=== PATIENT | male | born 1935 | race Caucasian/White ===

== ENCOUNTER 2017-02-23 05:02 | Emergency (ER) | payer MEDICARE ==
[~2017-02-23] VITALS: Ht 177.8 cm; Wt 76.0 kg
[~2017-02-23 05:02] MED LIST: KEFLEX500 MG PO
[2017-02-23 05:08] VITALS: BP 166/91
== END 2017-02-23 06:00 | disposition left against medical advice (07) ==
LOC: ED 05:02 → LWOBS 06:00
DX: Z91.19 Patient's noncompliance with other medical treatment and regimen (principal)

== ENCOUNTER → 2018-12-04 | Outpatient (REF) | payer MEDICARE ==
[~2018-12-04] MED LIST changes: +ASPIRIN 81 LOW81 MG PO; +AVALIDE 150-12.1 TAB PO; +CLONAZEPAM1 M1 PO; +LIPITOR40 M1 PO; +MECLIZINE12.5 M1 PO; +OMEPRAZOLE20 M2 PO; +TOPROL XL50 MG PO; +TYLENOL325 MG PO
== END | disposition home or self-care (01) ==
LOC: LABSPEC 13:50
PROVIDERS: ATTEND Internal Medicine Gastroenterology
DX: R19.7 Diarrhea, unspecified (principal); K29.70 Gastritis, unspecified, without bleeding; B96.81 Helicobacter pylori [H. pylori] as the cause of diseases classified elsewhere; R19.5 Other fecal abnormalities

== ENCOUNTER → 2018-12-31 | Outpatient (REF) | payer MEDICARE ==
[~2018-12-31] VITALS: Ht 177.8 cm; Wt 76.2 kg
[2018-12-31 11:59] VITALS: BP 155/88
== END | disposition home or self-care (01) ==
LOC: ORM 11:00 → ENDO 11:13 → PO 11:13 → ORM 11:15
PROVIDERS: ATTEND Internal Medicine Gastroenterology
DX: Z01.818 Encounter for other preprocedural examination (principal); R19.7 Diarrhea, unspecified; K21.9 Gastro-esophageal reflux disease without esophagitis; I10 Essential (primary) hypertension; R42 Dizziness and giddiness; H40.9 Unspecified glaucoma; I25.10 Atherosclerotic heart disease of native coronary artery without angina pectoris; Z95.1 Presence of aortocoronary bypass graft; Z90.49 Acquired absence of other specified parts of digestive tract; Z98.890 Other specified postprocedural states; Z97.2 Presence of dental prosthetic device (complete) (partial)

== ENCOUNTER 2019-06-20 00:06 | Emergency (ER) | payer MEDICARE ==
[~2019-06-20] VITALS: Ht 25.4 cm; Wt 74.5 kg
[2019-06-20] MEDS ORDERED: TIZANIDINE2 MG PO (00:21)
[2019-06-20] MEDS ORDERED: DULOXETINE HYDR30 MG PO (00:21)
[2019-06-20 03:30] VITALS: BP 161/84
== END 2019-06-20 03:30 | disposition short-term general hospital (02) ==
LOC: ED 00:06
DX: M48.56XA Collapsed vertebra, not elsewhere classified, lumbar region, initial encounter for fracture (principal); M48.061 Spinal stenosis, lumbar region without neurogenic claudication; I10 Essential (primary) hypertension; I25.10 Atherosclerotic heart disease of native coronary artery without angina pectoris; Z95.1 Presence of aortocoronary bypass graft

== ENCOUNTER 2019-07-21 09:23 | Emergency (ER) | payer MEDICARE ==
[~2019-07-21] VITALS: Ht 177.8 cm; Wt 75.5 kg
[~2019-07-21 09:23] MED LIST changes: +DULOXETINE HYDR30 MG PO; +TIZANIDINE2 MG PO
[2019-07-21] MEDS ORDERED: TRAMADOL HYDROC50 M1 PO (09:40)
[2019-07-21] MEDS ORDERED: HYDROCODONE/ACE1 T12 PO (09:41)
[2019-07-21] MEDS ORDERED: BETIMOL0.5 % OU (09:43)
[2019-07-21] MEDS ORDERED: DORZOLAMIDE HCL2 % OD (09:44)
[2019-07-21] MEDS ORDERED: LOTEMAX0.52 OD (09:45)
[2019-07-21] MEDS ORDERED: BRIMONIDINE TAR0.2 % OD (09:45)
[2019-07-21] MEDS ORDERED: CLONAZEPAM1 M1 PO (09:46)
[2019-07-21] MEDS ORDERED: PERCOCET 5/321 COMBO PO (11:20)
[2019-07-21 11:31] VITALS: BP 154/70
== END 2019-07-21 12:48 | disposition home or self-care (01) ==
LOC: ED 09:23
DX: M48.061 Spinal stenosis, lumbar region without neurogenic claudication (principal); I10 Essential (primary) hypertension; I25.10 Atherosclerotic heart disease of native coronary artery without angina pectoris

== ENCOUNTER 2021-01-05 19:23 | Emergency (ER) | payer MEDICARE ==
[~2021-01-05] VITALS: Ht 177.8 cm; Wt 71.0 kg
[~2021-01-05 19:23] MED LIST changes: +BETIMOL0.5 % OU; +BRIMONIDINE TAR0.2 % OD; +DORZOLAMIDE HCL2 % OD; +HYDROCODONE/ACE1 T12 PO; +LOTEMAX0.52 OD; +PERCOCET 5/321 COMBO PO; +TRAMADOL HYDROC50 M1 PO
[2021-01-05 19:25] VITALS: BP 169/90
[2021-01-05] MEDS ORDERED: ERYTHROMYCIN O3.5 GM OS (20:00)
[2021-01-05] MEDS ORDERED: ZPAK PO (20:00)
== END 2021-01-05 20:28 | disposition home or self-care (01) ==
LOC: ED 19:23
DX: T81.89XA Other complications of procedures, not elsewhere classified, initial encounter (principal); I10 Essential (primary) hypertension; K21.9 Gastro-esophageal reflux disease without esophagitis; E78.00 Pure hypercholesterolemia, unspecified; I25.10 Atherosclerotic heart disease of native coronary artery without angina pectoris; C76.0 Malignant neoplasm of head, face and neck; Y83.8 Other surgical procedures as the cause of abnormal reaction of the patient, or of later complication, without mention of misadventure at the time of the procedure; Z95.1 Presence of aortocoronary bypass graft

== ENCOUNTER 2021-02-16 23:38 | Emergency (ER) | payer MEDICARE ==
[~2021-02-16 23:38] MED LIST changes: +ERYTHROMYCIN O3.5 GM OS; +ZPAK PO
[2021-02-17 01:40] VITALS: BP 166/93
== END 2021-02-17 01:52 | disposition home or self-care (01) ==
LOC: ED 23:38
DX: M54.5 Low back pain (principal); M48.061 Spinal stenosis, lumbar region without neurogenic claudication; I10 Essential (primary) hypertension; K21.9 Gastro-esophageal reflux disease without esophagitis; E78.00 Pure hypercholesterolemia, unspecified; I25.10 Atherosclerotic heart disease of native coronary artery without angina pectoris; Z95.1 Presence of aortocoronary bypass graft

== ENCOUNTER 2021-02-19 10:50 | Emergency (ER) | payer MEDICARE ==
[2021-02-19] MEDS ORDERED: METOPROLOL TART50 MG PO (11:28)
[2021-02-19] MEDS ORDERED: PREDNISONE50 MG PO (14:26)
[2021-02-19] MEDS ORDERED: HYDROCO/APAP1 TA9 PO (14:26)
[2021-02-19 14:52] VITALS: BP 150/80
== END 2021-02-19 15:21 | disposition home or self-care (01) ==
LOC: ED 10:50
DX: M25.552 Pain in left hip (principal); I10 Essential (primary) hypertension; K21.9 Gastro-esophageal reflux disease without esophagitis; I25.10 Atherosclerotic heart disease of native coronary artery without angina pectoris; W19.XXXA Unspecified fall, initial encounter; Z95.1 Presence of aortocoronary bypass graft

== ENCOUNTER 2021-02-20 14:07 | Emergency (ER) | payer MEDICARE ==
[~2021-02-20 14:07] MED LIST changes: +HYDROCO/APAP1 TA9 PO; +METOPROLOL TART50 MG PO; +PREDNISONE50 MG PO
[2021-02-20 15:45] VITALS: BP 155/68
== END 2021-02-20 15:45 | disposition home or self-care (01) ==
LOC: ED 14:07
DX: M25.552 Pain in left hip (principal); M54.5 Low back pain; I10 Essential (primary) hypertension; K21.9 Gastro-esophageal reflux disease without esophagitis; E78.00 Pure hypercholesterolemia, unspecified; I25.10 Atherosclerotic heart disease of native coronary artery without angina pectoris